=== PATIENT | male | born 1950 | race Caucasian/White ===

== ENCOUNTER → 2018-12-11 11:34 | Outpatient (CLI) | payer MEDICARE, OTHER, SELFPAY ==
[2018-12-11 10:58] VITALS: BMI 31.2
[2018-12-11 12:41] LABS: Absolute Lymphocyte Count 12.25 X10^3/uL (0.83-4.51); Absolute Neutrophil Count 4.8 X10^3/uL (2.0-7.7); Basophil# 0.06 X10^3/uL; Basophil% 0.3 % (0-1); Eosinophil# 0.24 X10^3/uL; Eosinophils% 1.3 % (0-5); Hemoglobin 14.2 g/dL (13.0-16.5); Lymphocyte # 12.25 X10^3/ul (4.0); Lymphocyte % 67.5 % (19-41); Mean Corp Hgb Conc 32.3 g/dL (32-36); Mean Corpuscular Hgb 29.2 pg (27.0-32.0); Mean Corpuscular Volume 90.3 fL (80-94); Mean Platelet Vol. 10.3 fl (6.2-12.0); Monocyte# 0.74 X10^3/uL; Monocyte% 4.1 % (0-10); NRBC Flagged by Analyzer 0 % (0-5); Neutrophil # 4.81 X10^3/uL (2.7-7.7); Neutrophil % 26.6 % (47-70); POSITIVE DIFFERENTIAL YES; POSITIVE MORPHOLOGY YES; Platelet Count 213 K/mm3 (150-450); RBC Distribution Width SD 46.2 fl (35.1-43.9); Red Blood Count 4.87 M/mm3 (4.6-6.2); White Blood Count 18.1 K/mm3 (4.4-11.0)
[2018-12-11 12:55] LABS: Differential Indicated SCAN CRITERIA MET
[2018-12-11 13:18] LABS: Reactive Lymphocyte 1+
[2018-12-11 13:19] LABS: Smudge Cells 1+
[2018-12-11 14:57] LABS: Pathologist Review Reviewed
[2018-12-12 13:03] LABS: PSA, Free 0.54 ng/mL; PSA, Free % 7.4 % (.); PSA, Total Ultrasensitive 7.3 ng/mL (0.0-4.0)
== END ==
PROVIDERS: Visit Provider Family Medicine
DX: C91.90 Lymphoid leukemia, unspecified not having achieved remission (principal); R97.20 Elevated prostate specific antigen [PSA]
CPT/HCPCS: 36415; 84153; 84154; 85025

== ENCOUNTER → 2019-06-12 | Outpatient (CLI) | payer MEDICARE, OTHER, SELFPAY ==
[2019-06-12 11:43] VITALS: BMI 31.2
[2019-06-16 11:57] LABS: PSA, Free 0.64 ng/mL; PSA, Free % 8.4 % (.); PSA, Total Ultrasensitive 7.6 ng/mL (0.0-4.0)
== END | disposition home or self-care (01) ==
LOC: BIMLAB 12:08
PROVIDERS: PCP Family Medicine; Referring Provider Family Medicine; Visit Provider Family Medicine
DX: R97.20 Elevated prostate specific antigen [PSA] (principal)
CPT/HCPCS: 36415; 84153; 84154

== ENCOUNTER → 2019-06-26 | Outpatient (CLI) | payer MEDICARE, OTHER, SELFPAY ==
[2019-06-12 11:43] VITALS: BMI 31.2
--- NOTE | 2019-06-26 12:20 | ECHOCS_ITS ---
Reason For Study: HTN Procedure This was a 2D Doppler, Color Flow transthoracic echocardiogram. The study was technically difficult. Exam performed in department. Left Ventricle Normal LV size. The estimated ejection fraction is 60 %. No evidence for diastolic dysfunction. No regional wall motion abnormalities noted. Right Ventricle Normal RV size. Normal systolic function. Atria Normal left atrium. Normal right atrium. No doppler evidence for ASD. Mitral Valve There is no mitral valve stenosis. No mitral valve insufficiency. Tricuspid Valve There is no tricuspid stenosis. Unable to estimate RV systolic pressure due to inadequate jet, pulmonary artery pressure probably normal. No tricuspid valve insufficiency. Aortic Valve Trisinus/trileaflet aortic valve. There is no aortic stenosis. No aortic valve insufficiency. Pulmonic Valve There is no pulmonic valvular stenosis. No pulmonic valve insufficiency. Great Vessels Normal aortic root. Pericardium/Pleural No pericardial effusion. Medication 22 gauge I.V. with prn adaptor inserted into right arm. Performed a rapid injection of agitated mix of 9 cc saline and 1cc air to assess for atrial septal defect. Diluted definity 3ml given slow IV push to enhance endocardial definition. MMode/2D Measurements & Calculations LVIDd: 4.4 cm IVSd: 1.2 cm Ao root diam: 4.4 cm LVIDs: 3.1 cm LVPWd: 1.2 cm RVDd: 3.8 cm FS: 30.5 % LAV(MOD-bp): 51.9 ml LA A4 area: 18.2 cm2 LA dimension(2D): 5.3 cm LAV(MOD-bp) Indexed: 21.7 ml/m2 LAV(MOD-sp2): 51.5 ml LAV(MOD-sp4): 48.3 ml RA A4 area: 17.0 cm2 Doppler Measurements & Calculations MV E max james: 66.6 cm/sec Lat Peak E' James: 8.7 cm/sec Med Peak E' James: 6.0 cm/sec MV A max james: 102.2 cm/sec E/E' lat: 7.7 E/E' med: 11.1 MV E/A: 0.65 Ao V2 max: 131.2 cm/sec LV V1 max: 117.3 cm/sec PA V2 max: 114.4 cm/sec Ao max P.9 mmHg LV V1 max P.5 mmHg Interpretation Summary The study was technically difficult. Contrast injection was performed. The estimated ejection fraction is 60 %. No evidence for diastolic dysfunction. The study was technically difficult. Contrast injection was performed. Ordering Physician: Theo Ayala Referring Physician: Theo Ayala Performed By: Talia Silva RDCS
== END | disposition home or self-care (01) ==
LOC: CVS 12:20
PROVIDERS: Referring Provider Family Medicine; Visit Provider Family Medicine
DX: I51.7 Cardiomegaly (principal); I10 Essential (primary) hypertension
CPT/HCPCS: 93306; Q9957; A4216; C8929

== ENCOUNTER → 2020-07-14 13:57 | Outpatient (CLI) | payer MEDICARE, OTHER, SELFPAY ==
[2020-07-14 13:17] VITALS: BMI 31.2
[2020-07-14 15:35] LABS: Glucose 96 mg/dL (74-106)
== END ==
PROVIDERS: PCP Family Medicine; Referring Provider Family Medicine; Visit Provider Family Medicine
DX: E11.9 Type 2 diabetes mellitus without complications (principal); R97.20 Elevated prostate specific antigen [PSA]
CPT/HCPCS: 36415; 82947; 84153

== ENCOUNTER → 2023-08-01 | Outpatient (CLI) | payer MEDICARE, OTHER, SELFPAY ==
[2023-08-01 15:36] LABS: Absolute Lymphocyte Count 9.01 X10^3/uL (0.83-4.51); Absolute Neutrophil Count 4.3 X10^3/uL (2.0-7.7); Basophil# 0.05 X10^3/uL; Basophil% 0.4 % (0-1); Eosinophil# 0.15 X10^3/uL; Eosinophils% 1.1 % (0-5); Hematocrit 41.9 % (40-54); Hemoglobin 13.3 g/dL (13.0-16.5); Lymphocyte # 9.01 X10^3/ul (0.83-4.51); Mean Corp Hgb Conc 31.7 g/dL (32-36); Mean Corpuscular Hgb 28.9 pg (27.0-32.0); Mean Corpuscular Volume 90.9 fL (80-94); Mean Platelet Vol. 10.3 fl (6.2-12.0); Monocyte# 0.54 X10^3/uL; Monocyte% 3.8 % (0-10); NRBC Flagged by Analyzer 0 % (0-5); Neutrophil # 4.28 X10^3/uL (2.7-7.7); Neutrophil % 30.4 % (47-70); POSITIVE DIFFERENTIAL YES; Platelet Count 220 K/mm3 (150-450); RBC Distribution Width SD 46.5 fl (35.1-43.9); Red Blood Count 4.61 M/mm3 (4.6-6.2); White Blood Count 14.1 K/mm3 (4.4-11.0)
[2023-08-01 15:43] LABS: Differential Indicated SCAN CRITERIA MET
[2023-08-01 16:04] LABS: Hemoglobin A1c 5.2 % (3.8-5.6)
[2023-08-01 16:32] LABS: Atypical Lymphocyte 1+ %; Platelet Estimate ADEQUATE (ADEQ); Red Cell Morphology N CHROM NORMAL (NORM C&C)
[2023-08-01 16:33] LABS: Anisocytosis RARE; Macrocytosis RARE
== END | disposition home or self-care (01) ==
LOC: BIMLAB 13:20
PROVIDERS: PCP Family Medicine; Visit Provider Family Medicine
DX: F43.10 Post-traumatic stress disorder, unspecified (principal); E11.9 Type 2 diabetes mellitus without complications
CPT/HCPCS: 36415; 83036; 85025

== ENCOUNTER → 2024-01-30 | Outpatient (CLI) | payer MEDICARE, OTHER, SELFPAY ==
[2024-01-30 15:23] LABS: Absolute Lymphocyte Count 7.07 X10^3/uL (0.83-4.51); Absolute Neutrophil Count 4.1 X10^3/uL (2.0-7.7); Basophil# 0.04 X10^3/uL; Basophil% 0.3 % (0-1); Eosinophils% 0.8 % (0-5); Hematocrit 39.6 % (40-54); Hemoglobin 12.5 g/dL (13.0-16.5); Lymphocyte # 7.07 X10^3/ul (0.83-4.51); Lymphocyte % 59.5 % (19-41); Mean Corp Hgb Conc 31.6 g/dL (32-36); Mean Corpuscular Hgb 29.1 pg (27.0-32.0); Mean Corpuscular Volume 92.1 fL (80-94); Mean Platelet Vol. 10.1 fl (6.2-12.0); Monocyte# 0.55 X10^3/uL; Monocyte% 4.6 % (0-10); NRBC Flagged by Analyzer 0 % (0-5); Neutrophil # 4.11 X10^3/uL (2.7-7.7); Neutrophil % 34.6 % (47-70); POSITIVE DIFFERENTIAL YES; Platelet Count 167 K/mm3 (150-450); RBC Distribution Width CV 14.6 % (11.6-14.6); RBC Distribution Width SD 49.1 fl (35.1-43.9); White Blood Count 11.9 K/mm3 (4.4-11.0)
--- OUTSIDE RECORDS SUMMARY | 2024-01-30 15:52 | XMS RPT_ITS | CCD ---
Author Organization [facility] NEUROLOGY PHYSICIAN [facility] Care Team Providers Care Corporate Treasurer Name Role Phone MAICO WHITE Unavailable Unavailable BEE CALDERA Unavailable Unavailable Results Test Name Value Interpretation Reference Range Facil ity XR CHEST 2 VIEWSon 8 XR CHEST 2 VIEWS ORIGINALChest 2 views HISTORY: Cough COMPARISON: None The heart and pulmonary vessels are normal. No consolidation, atelectasis or pleural fluid seen. Minor degenerative changes noted in the spine. There are several left rib deformities present from remote injury. IMPRESSION: No acute finding. Interpreted By: Demarcus Moyreliminary Report By: Demarcus Moy MDElectronically Signed By: Demarcus Moy MD Dictated Date: 04/24/2017 3:25:52 PM Prelim Date: 04/24/2017 3:25:52 PM Sign Date: 04/24/2017 3:26:14 PM Normal [facility] ([place]) Encounters Encounter Date Encounter Type Care Provider Facility Start: 04-24-2017 End: 04-25-2017 Ambulatory MAICO WHITE Facility:[facility] Payers Date Payer Category Payer Medicare [id number] Summary Purpose Family History No Family History Records Found Advance Directives No Advanced Directives Records Found Additional Source Comments (unrecognized sect ion and content) No Status Records Found INFORMATION SOURCE (unrecogn ized section and content) DATE CREATED AUTHOR 10/02/2017 [facility] ([place]) FOR RECORDS PERTAINING TO PATIENTS WHO ARE OR HAVE BEEN ENROLLED IN A CHEMICAL DEPENDENCY/SUBSTANCEABUSE PROGRAM, SOME INFORMATION MAY BE OMITTED. This clinical summary was aggregated from multiple sources. Caution should be exercised in using it in the provision of clinical care. This summary normalizes information from multiple sources, and as a consequence, information in this document may materially change the coding, format and clinical context of patient data. In addition, data may be omitted in some cases. CLINICAL DECISIONS SHOULD BE BASED ON THE PRIMARY CLINICAL RECORDS. [facility], [facility]. provides no warranty or guarantee of the accuracy or completeness of information in this document.
[2024-01-30 15:54] LABS: Differential Indicated SCAN CRITERIA MET
[2024-01-30 15:56] LABS: Differential Comment SCANNED; Reactive Lymphocyte 2+
[2024-01-30 15:57] LABS: Smudge Cells RARE
[2024-01-30 16:24] LABS: Hemoglobin A1c 5.4 % (3.8-5.6)
== END | disposition home or self-care (01) ==
LOC: BIMLAB 13:22
PROVIDERS: PCP Family Medicine; Referring Provider Family Medicine; Visit Provider Family Medicine
DX: E11.9 Type 2 diabetes mellitus without complications (principal); C91.10 Chronic lymphocytic leukemia of B-cell type not having achieved remission; R97.20 Elevated prostate specific antigen [PSA]
CPT/HCPCS: 36415; 83036; 84153; 85025

== ENCOUNTER → 2024-04-15 | Outpatient (CLI) | payer OTHER, MEDICARE, SELFPAY ==
--- NOTE | 2024-04-15 10:45 | PET_ITS ---
EXAMINATION: 18 F Pylarify PET-CT HISTORY: A 73-year-old male with history of prostate carcinoma. COMPARISON EXAMINATION: None available INDEX LESION SIZE PROMISE SCORE SUV INTERPRETATION Prostate gland right of the midline 13.8-mm 2 16.32 Fulfills quantitative criteria for viable neoplasm TECHNIQUE: Following the intravenous administration of 9.98 mCi of 18 F Pylarify via the left antecubital fossa, image acquisitions of the head, neck, chest, abdomen and pelvis to the level of the mid thigh at 73 minutes post-tracer distribution reveal: The examination was interpreted using the EANM (Romulo et al., Journal of Nuclear Medicine Molecular Imaging 44:1622, 2017) and PROMISE (Esequiel et al., Journal of Nuclear Medicine 59:469, 2018) interpretive criteria. HEIGHT: 74 inches. WEIGHT: 164 lbs. PSMA expression score PROMISE criteria: High (3): SUV ? parotid-salivary gland, intermediate (2): SUV ? liver, low (1): > blood pool, < liver, (0): < blood pool. SUV reference values: Parotid glands 19.62. Normal liver parenchyma 8.3. Blood pool 1.5. FINDINGS: Head/Neck: There is normal physiologic distribution of the radiopharmaceutical identified in the bilateral parotid and submandibular glands. Normal uptake is identified in the nasal cavity. There is no evidence of abnormal increased radiopharmaceutical concentration on meticulous inspection of the cranial vault. CHEST: There is no evidence of abnormal increased radiotracer within the context of the bilateral hemithorax pulmonary parenchyma, mediastinal structures and right-left thoracic perihilum. Pertinent chest CT findings are as follows. There is atherosclerotic calcification defined in the thoracic aorta without evidence of dilatation-aneurysm formation. Coronary arterial calcification is observed. A parenchymal density defined in the left lower posteromedial lung zone is ametabolic. Mediastinal soft tissue densities are ametabolic. Abdomen/Pelvis: Facilitated uptake is noted in the lower pelvis to the right of the midline involving the prostate gland. The calculated maximal standard uptake value is 16.32. The PROMISE score is 2. The maximal axial diameter of the metabolic, morphologic abnormality is 13.8-mm. Physiologic radiopharmaceutical concentration is otherwise noted in the hepatic and splenic parenchyma, visualized intestinal tract, right and left kidneys, urinary bladder. Prominent uptake is noted in the distal ureter bilaterally. Review of CT of the abdomen and pelvis reveals the following. Calcification is defined in the base of the prostate gland to the left of the midline. Right and left inguinal soft tissue densities are ametabolic. There is atherosclerotic calcification defined in the abdominal aorta without evidence of dilatation-aneurysm formation. Pelvic arterial calcification is observed. SKELETAL: Degenerative changes are noted in the cervical, thoracic and lumbar spine without evidence of increased radiopharmaceutical concentration. Increased uptake is noted in the left lower anterior chest wall associated with rib. The calculated maximal standard uptake value is 3.4. The PROMISE score is 1. PET/PET/CT Tumor Base -Thigh Init IMPRESSION: 1. ABNORMAL EXAMINATION INDICATIVE OF MALIGNANT VIABLE NEOPLASM. 2. Increased tracer uptake noted in the lower pelvis to the right of the midline involving the prostate gland fulfills quantitative criteria for neoplastic transformation. 3. Facilitated uptake identified in the left lower anterior chest wall-rib is consistent with trauma-fracture. Quantitative criteria for viable neoplasm are not fulfilled. Electronic Signature Brian Porter DO Accurate Quantification of SUVs and standardized PROMISE scores for this report are calculated using the exclusive [employer], ([place] Patent No. [id number] [id number] [phone] [phone] [place] patent [phone] ). Standardization and correction of the FDG SUV metric exclusively available with [employer] intellectual property, allow for vendor non-specific objective quantitative sequential FDG PET-CT comparison and otherwise unobtainable optimization of the sensitivity and specificity of the examination. https://[employer] Electronically Signed: Brian Porter DO at 10:12 [facility]UST ,
== END | disposition home or self-care (01) ==
LOC: ONC 09:29
PROVIDERS: PCP Family Medicine; Referring Provider Nurse Practitioner; Visit Provider Nurse Practitioner
DX: D07.5 Carcinoma in situ of prostate (principal)
CPT/HCPCS: 78815; A9595

== ENCOUNTER → 2025-03-11 | Outpatient (CLI) | payer MEDICARE, OTHER, SELFPAY ==
[2025-03-11 15:08] LABS: Hematocrit 36.9 % (40-54); Hemoglobin 11.9 g/dL (13.0-16.5); Immature Granulocytes Count 0.010 X10^3/uL (0.0-0.0); Mean Corp Hgb Conc 32.2 g/dL (32-36); Mean Corpuscular Volume 91.6 fL (80-94); Mean Platelet Vol. 10.1 fl (6.2-12.0); NRBC Flagged by Analyzer 0 % (0-5); POSITIVE DIFFERENTIAL YES; POSITIVE MORPHOLOGY YES; Platelet Count 167 K/mm3 (150-450); RBC Distribution Width CV 14.3 % (11.6-14.6); RBC Distribution Width SD 48.2 fl (35.1-43.9); Red Blood Count 4.03 M/mm3 (4.6-6.2); White Blood Count 9.7 K/mm3 (4.4-11.0)
[2025-03-11 15:15] LABS: Differential Indicated SCAN CRITERIA MET
[2025-03-11 15:58] LABS: Anion Gap 12 (5-15); BUN 24 mg/dL (4-19); BUN/Creat Ratio 25.7 RATIO (10-20); Calcium,Total 9.1 mg/dL (7.6-11.0); Carbon Dioxide 23.9 mmol/L (21.0-32.0); Chloride 104 mmol/L (98-108); Glucose 89 mg/dL (70-99); PSA,Total- Diagnostic < 0.02 ng/mL (0.00-4.00); Potassium 4.2 mmol/L (3.3-5.1)
[2025-03-11 20:15] LABS: Differential Comment SCANNED
== END | disposition home or self-care (01) ==
LOC: MTLAB 13:46
PROVIDERS: PCP Family Medicine; Referring Provider Family Medicine; Visit Provider Family Medicine
DX: C61 Malignant neoplasm of prostate (principal); E11.9 Type 2 diabetes mellitus without complications
CPT/HCPCS: 36415; 80048; 83036; 84153; 85025